=== PATIENT | male | born 1980 | race Caucasian/White ===

== ENCOUNTER 2017-04-11 05:37 | Emergency (ER) | payer OTHER ==
[~2017-04-11] VITALS: Ht 175.3 cm; Wt 87.1 kg
[~2017-04-11 05:37] MED LIST: ALEVE220 M1 PO; FIORICET 50-301 EACH PO; KETO10TA2 PO
[2017-04-11] MEDS ORDERED: FIORICET 50-301 EACH PO (08:05)
== END 2017-04-11 08:33 ==
LOC: ER 05:37
DX: G43.109 Migraine with aura, not intractable, without status migrainosus (principal)

== ENCOUNTER 2018-08-15 08:04 | Outpatient (CLI) | payer OTHER | END 2018-08-15 08:15 | disposition home or self-care (01) | LOC: SONOGRAMA 08:04 | DX: R10.84 Generalized abdominal pain (principal) ==

== ENCOUNTER 2018-09-22 09:47 | Outpatient (CLI) | payer OTHER | END 2018-09-22 10:51 | disposition home or self-care (01) | LOC: NUCLEAR 09:47 | DX: K81.1 Chronic cholecystitis (principal) | CPT/HCPCS: 78227; A9537 ==

== ENCOUNTER 2018-11-20 04:40 | Day surgery (SDC) | payer OTHER ==
[2018-11-20] MEDS ORDERED: ZOFRAN4 MG PO (08:43)
[2018-11-20] MEDS ORDERED: TYLENOL EXTRA500 MG PO (08:43)
[2018-11-20] MEDS ORDERED: TRAMADOL HCL50 MG PO (08:43)
[2018-11-20] MEDS ORDERED: MIRALAX17 GM PO (08:43)
== END 2018-11-20 11:10 | disposition home or self-care (01) ==
LOC: CIR.AMB 04:40
DX: K80.10 Calculus of gallbladder with chronic cholecystitis without obstruction (principal)